=== PATIENT | male | born 1975 | race Caucasian/White ===

== ENCOUNTER 2017-06-17 22:13 | Emergency (ER) | payer MEDICAID ==
[~2017-06-17] VITALS: Ht 193 cm; Wt 76.2 kg
[~2017-06-17 22:13] MED LIST: CYCL-394 PO; HYDR1TAB PO; IBUP-1574 PO; MOT200T PO; motrin; no home
[2017-06-17 22:34] VITALS: BP 113/80
[2017-06-17] MEDS ORDERED: iohexol 300mg/ml 100ml inj. ONE (23:29)
[2017-06-18 00:05] LABS: BASOPHILS % (AUTO) 0.4 % (0-1); EOSINOPHILS # (AUTO) 0.3 X10'3 (0-0.9); EOSINOPHILS % (AUTO) 2.6 % (0-6); HEMATOCRIT 42.7 % (42.0-52.0); HEMOGLOBIN 14.5 g/dl (14.0-17.9); LYMPHOCYTES % (AUTO) 17.5 % (21-51); MEAN CORPUSCULAR HEMOGLOBIN 30.3 PG (27.0-31.0); MEAN CORPUSCULAR VOLUME 88.9 FL (78-98); MONOCYTES # (AUTO) 1.2 X10'3 (0-0.9); MONOCYTES % (AUTO) 10.8 % (2-12); NEUTROPHILS # (AUTO) 7.7 X10'3 (1.8-7.7); NEUTROPHILS % (AUTO) 68.7 % (42-75); PLATELET COUNT 262 X10'3 (140-440); RED BLOOD COUNT 4.81 X10'6 (4.70-6.10); RED CELL DISTRIBUTION WIDTH 15.7 % (11.5-14.5); WHITE BLOOD COUNT 11.3 X10'3 (4.5-11.0)
[2017-06-18 00:18] LABS: PARTIAL THROMBOPLASTIN TIME 29 SECONDS (22-32); PROTHROMBIN TIME 10.5 SECONDS (9.0-12.0)
[2017-06-18 00:20] LABS: ALANINE AMINOTRANSFERASE 20 U/L (12-78); ALBUMIN 3.3 G/DL (3.4-5.0); ALBUMIN/GLOBULIN RATIO 0.9 (1.1-1.5); ALKALINE PHOSPHATASE 110 IU/L (46-116); ANION GAP 9 (8-16); ASPARTATE AMINO TRANSFERASE 14 U/L (10-37); BILIRUBIN,TOTAL 1.6 MG/DL (0.1-1.0); BLOOD UREA NITROGEN 13 MG/DL (7-18); BUN/CREATININE RATIO 12.6 (5.4-32.0); CALCIUM 8.8 MG/DL (8.5-10.1); CHLORIDE 101 MMOL/L (99-107); CREATININE 1.03 MG/DL (0.60-1.10); GLUCOSE 114 MG/DL (70-104); POTASSIUM 3.3 MMOL/L (3.5-5.1); SODIUM 138 MMOL/L (135-145); TOTAL CARBON DIOXIDE 28.5 MMOL/L (24-32); TOTAL PROTEIN 6.9 G/DL (6.4-8.2); eGFR 79 ML/MIN
[2017-06-18] MEDS ORDERED: SULF1TAB49 PO (01:18)
[2017-06-18] MEDS ORDERED: CEPH500C5 PO (01:18)
[2017-06-18] MEDS ORDERED: ibuprofen tablet 400 MG TABLET PO ONE (01:20)
== END 2017-06-18 01:33 | disposition home or self-care (01) ==
LOC: ER 22:13
DX: L03.114 Cellulitis of left upper limb (principal); F12.10 Cannabis abuse, uncomplicated; J45.909 Unspecified asthma, uncomplicated; Z90.49 Acquired absence of other specified parts of digestive tract; Z79.899 Other long term (current) drug therapy
CPT/HCPCS: 36415; 73201; 80053; 83605; 84145; 85025; 85610; 85651; 85730; 87040; 99285; Q9967

== ENCOUNTER 2017-06-21 16:05 | Inpatient (IN) | payer MEDICAID ==
[~2017-06-21] VITALS: Ht 193 cm; Wt 100.0 kg
[~2017-06-21 16:05] MED LIST changes: +CEPH500C5 PO; +SULF1TAB49 PO
[2017-06-21] MEDS ORDERED: morphine 4 MG/ML inj SYRINge IV ONE (18:50)
[2017-06-21] MEDS ORDERED: LORazepam 2 mg/ml vial IV ONE (18:50)
[2017-06-21] MEDS ORDERED: normal saline 1000ML IV soln IVB ONE (18:50)
[2017-06-21] MEDS ORDERED: piperacillin/tazo 3.375gm/50ml 50 ML IV ONE (18:50)
[2017-06-21] MEDS ORDERED: iohexol 300mg/ml 100ml inj. ONE (19:14)
[2017-06-21 19:32] LABS: BASOPHILS # (AUTO) 0.1 X10'3 (0-0.2); BASOPHILS % (AUTO) 0.5 % (0-1); EOSINOPHILS # (AUTO) 0.2 X10'3 (0-0.9); EOSINOPHILS % (AUTO) 1.2 % (0-6); HEMATOCRIT 41.8 % (42.0-52.0); HEMOGLOBIN 13.9 g/dl (14.0-17.9); LYMPHOCYTES # (AUTO) 1.7 X10'3 (1.1-4.8); LYMPHOCYTES % (AUTO) 11.4 % (21-51); MEAN CORPUSCULAR HEMOGLOBIN 29.8 PG (27.0-31.0); MEAN CORPUSCULAR HGB CONC 33.3 % (33.0-36.5); MEAN CORPUSCULAR VOLUME 89.5 FL (78-98); MEAN PLATELET VOLUME 7.4 FL (7.4-10.4); MONOCYTES # (AUTO) 1.3 X10'3 (0-0.9); MONOCYTES % (AUTO) 8.4 % (2-12); NEUTROPHILS # (AUTO) 11.7 X10'3 (1.8-7.7); NEUTROPHILS % (AUTO) 78.5 % (42-75); PLATELET COUNT 333 X10'3 (140-440); RED BLOOD COUNT 4.67 X10'6 (4.70-6.10); RED CELL DISTRIBUTION WIDTH 15.8 % (11.5-14.5); WHITE BLOOD COUNT 14.9 X10'3 (4.5-11.0)
[2017-06-21 19:41] LABS: PARTIAL THROMBOPLASTIN TIME 32 SECONDS (22-32); PROTHROMBIN TIME 10.7 SECONDS (9.0-12.0)
[2017-06-21 19:46] LABS: ALANINE AMINOTRANSFERASE 28 U/L (12-78); ALBUMIN 2.9 G/DL (3.4-5.0); ALBUMIN/GLOBULIN RATIO 0.7 (1.1-1.5); ALKALINE PHOSPHATASE 95 IU/L (46-116); ANION GAP 7 (8-16); ASPARTATE AMINO TRANSFERASE 19 U/L (10-37); BLOOD UREA NITROGEN 13 MG/DL (7-18); BUN/CREATININE RATIO 14.6 (5.4-32.0); CALCIUM 8.8 MG/DL (8.5-10.1); CHLORIDE 99 MMOL/L (99-107); CREATININE 0.89 MG/DL (0.60-1.10); GLUCOSE 135 MG/DL (70-104); POTASSIUM 3.8 MMOL/L (3.5-5.1); SODIUM 133 MMOL/L (135-145); eGFR > 90 ML/MIN
[2017-06-21] MEDS ORDERED: ACET-2119 PO (20:17)
[2017-06-21] MEDS ORDERED: temazepam 15mg capsule PO PRN (21:00)
[2017-06-21] MEDS ORDERED: magnesium hydroxide 30ml (MOM) UD suspension PO PRN (22:10)
[2017-06-21] MEDS ORDERED: mag hydrox/Alum hydrox/simeth 30ml oral suspension PO PRN (22:10)
[2017-06-21] MEDS ORDERED: morphine 4 MG/ML inj SYRINge IV PRN (22:10)
[2017-06-21] MEDS ORDERED: acetaminophen 325mg tablet PO PRN (22:10)
[2017-06-21] MEDS ORDERED: ondansetron/PF 4mg/2ml inj IV PRN (22:10)
[2017-06-21] MEDS ORDERED: normal saline 1000ml 1,000 ML IV ONE (22:15)
[2017-06-21] MEDS: normal saline 1000ml 1,000 ML IV SCH (22:52)
[2017-06-22 00:17] LABS: URINE AMPHETAMINE SCREEN POSITIVE (Neg); URINE BARBITUATE SCREEN NEGATIVE (Neg); URINE BENZODIAZEPINES SCREEN NEGATIVE (Neg); URINE CANNABINOID SCREEN NEGATIVE (Neg); URINE COCAINE SCREEN NEGATIVE (Neg); URINE METHADONE SCREEN NEGATIVE (Neg); URINE OPIATE SCREEN POSITIVE (Neg); URINE PHENCYCLIDINE SCREEN NEGATIVE (Neg)
[2017-06-22] MEDS: piperacillin/tazo 3.375gm/50ml 50 ML IV SCH ×4 (02:19→20:04)
[2017-06-22 06:33] LABS: HEMATOCRIT 42.2 % (42.0-52.0); HEMOGLOBIN 14.2 g/dl (14.0-17.9); MEAN CORPUSCULAR HEMOGLOBIN 29.9 PG (27.0-31.0); MEAN CORPUSCULAR HGB CONC 33.6 % (33.0-36.5); MEAN CORPUSCULAR VOLUME 88.9 FL (78-98); MEAN PLATELET VOLUME 7.5 FL (7.4-10.4); PLATELET COUNT 291 X10'3 (140-440); RED BLOOD COUNT 4.74 X10'6 (4.70-6.10); RED CELL DISTRIBUTION WIDTH 16.1 % (11.5-14.5); WHITE BLOOD COUNT 16.9 X10'3 (4.5-11.0)
[2017-06-22 06:56] LABS: ALANINE AMINOTRANSFERASE 25 U/L (12-78); ALBUMIN 2.7 G/DL (3.4-5.0); ALBUMIN/GLOBULIN RATIO 0.6 (1.1-1.5); ALKALINE PHOSPHATASE 95 IU/L (46-116); ANION GAP 9 (8-16); ASPARTATE AMINO TRANSFERASE 20 U/L (10-37); BILIRUBIN,TOTAL 1.1 MG/DL (0.1-1.0); BLOOD UREA NITROGEN 8 MG/DL (7-18); BUN/CREATININE RATIO 8.7 (5.4-32.0); CALCIUM 8.8 MG/DL (8.5-10.1); CHLORIDE 101 MMOL/L (99-107); CREATININE 0.92 MG/DL (0.60-1.10); GLUCOSE 97 MG/DL (70-104); POTASSIUM 4.3 MMOL/L (3.5-5.1); SODIUM 136 MMOL/L (135-145); TOTAL CARBON DIOXIDE 26.3 MMOL/L (24-32); TOTAL PROTEIN 6.9 G/DL (6.4-8.2); eGFR 90 ML/MIN
[2017-06-22 07:11] LABS: ANISOCYTOSIS 1+; PLATELET ESTIMATE NORMAL; TOTAL CELLS COUNTED 100
[2017-06-22] MEDS: normal saline 1000ml 1,000 ML IV SCH ×2 (09:09→20:05)
[2017-06-22] MEDS: enoxaparin 40mg/0.4ml syringe SUBCUT SCH (09:43)
[2017-06-22] MEDS: morphine 4 MG/ML inj SYRINge IV PRN ×2 (09:44→21:43)
[2017-06-22 11:15] VITALS: BP 122/82
[2017-06-22] MEDS: HYDROcodone/acetaminophen 5mg/325mg tablet PO PRN ×2 (13:29→19:21)
[2017-06-22 14:31] VITALS: BP 137/89
[2017-06-22 20:00] VITALS: BP 122/66
[2017-06-22] MEDS: lactobacillus rhamnosus 10,000 MMU CELLS/CAPSULE PO SCH (20:05)
[2017-06-23] VITALS: BP 121/77
[2017-06-23] MEDS: HYDROcodone/acetaminophen 5mg/325mg tablet PO PRN ×5 (01:32→23:44)
[2017-06-23] MEDS: piperacillin/tazo 3.375gm/50ml 50 ML IV SCH ×4 (02:08→19:32)
[2017-06-23] MEDS: normal saline 1000ml 1,000 ML IV SCH ×3 (04:06→19:39)
[2017-06-23] MEDS: morphine 4 MG/ML inj SYRINge IV PRN ×4 (04:42→21:47)
[2017-06-23] MEDS ORDERED: VANCOMYCIN LEVEL IV ONE (07:30)
[2017-06-23 08:00] VITALS: BP 102/66
[2017-06-23 08:11] LABS: BASOPHILS # (AUTO) 0.1 X10'3 (0-0.2); BASOPHILS % (AUTO) 0.6 % (0-1); EOSINOPHILS # (AUTO) 0.5 X10'3 (0-0.9); EOSINOPHILS % (AUTO) 4.5 % (0-6); HEMATOCRIT 41.9 % (42.0-52.0); HEMOGLOBIN 13.9 g/dl (14.0-17.9); LYMPHOCYTES # (AUTO) 1.7 X10'3 (1.1-4.8); LYMPHOCYTES % (AUTO) 16.2 % (21-51); MEAN CORPUSCULAR HEMOGLOBIN 29.8 PG (27.0-31.0); MEAN CORPUSCULAR HGB CONC 33.2 % (33.0-36.5); MEAN CORPUSCULAR VOLUME 89.6 FL (78-98); MEAN PLATELET VOLUME 7.2 FL (7.4-10.4); MONOCYTES # (AUTO) 1.2 X10'3 (0-0.9); MONOCYTES % (AUTO) 10.8 % (2-12); NEUTROPHILS # (AUTO) 7.3 X10'3 (1.8-7.7); NEUTROPHILS % (AUTO) 67.9 % (42-75); PLATELET COUNT 337 X10'3 (140-440); RED BLOOD COUNT 4.67 X10'6 (4.70-6.10); RED CELL DISTRIBUTION WIDTH 16.1 % (11.5-14.5); WHITE BLOOD COUNT 10.8 X10'3 (4.5-11.0)
[2017-06-23] MEDS: lactobacillus rhamnosus 10,000 MMU CELLS/CAPSULE PO SCH ×2 (08:30→19:31)
[2017-06-23] MEDS: enoxaparin 40mg/0.4ml syringe SUBCUT SCH (08:31)
[2017-06-23 08:41] LABS: ALBUMIN 2.4 G/DL (3.4-5.0); ANION GAP 7 (8-16); BILIRUBIN,TOTAL 0.6 MG/DL (0.1-1.0); BLOOD UREA NITROGEN 10 MG/DL (7-18); BUN/CREATININE RATIO 11.1 (5.4-32.0); CALCIUM 8.7 MG/DL (8.5-10.1); CHLORIDE 103 MMOL/L (99-107); GLUCOSE 100 MG/DL (70-104); POTASSIUM 4.3 MMOL/L (3.5-5.1); SODIUM 138 MMOL/L (135-145); TOTAL CARBON DIOXIDE 27.7 MMOL/L (24-32); TOTAL PROTEIN 6.6 G/DL (6.4-8.2); eGFR > 90 ML/MIN
[2017-06-23 08:42] LABS: ALANINE AMINOTRANSFERASE 54 U/L (12-78); ALBUMIN/GLOBULIN RATIO 0.6 (1.1-1.5); ALKALINE PHOSPHATASE 89 IU/L (46-116); ASPARTATE AMINO TRANSFERASE 33 U/L (10-37); VANCOMYCIN,TROUGH 8.6 UG/ML (6.0-14.0)
[2017-06-23] MEDS ORDERED: Permethrin 1% 59ml topical rinse TP ONE (11:10)
[2017-06-23 16:02] LABS: URINE AMPHETAMINE SCREEN NEGATIVE (Neg); URINE BARBITUATE SCREEN NEGATIVE (Neg); URINE BENZODIAZEPINES SCREEN NEGATIVE (Neg); URINE CANNABINOID SCREEN NEGATIVE (Neg); URINE COCAINE SCREEN NEGATIVE (Neg); URINE METHADONE SCREEN NEGATIVE (Neg); URINE OPIATE SCREEN POSITIVE (Neg); URINE PHENCYCLIDINE SCREEN NEGATIVE (Neg)
[2017-06-23 20:00] VITALS: BP 125/70
[2017-06-23] MEDS ORDERED: VANCOMYCIN LEVEL IV NR (23:30)
[2017-06-24] VITALS: BP 143/74
[2017-06-24] MEDS: piperacillin/tazo 3.375gm/50ml 50 ML IV SCH ×4 (03:32→19:49)
[2017-06-24] MEDS: morphine 4 MG/ML inj SYRINge IV PRN ×3 (03:33→14:49)
[2017-06-24 04:53] LABS: BASOPHILS % (AUTO) 0.3 % (0-1); EOSINOPHILS # (AUTO) 0.7 X10'3 (0-0.9); EOSINOPHILS % (AUTO) 7.7 % (0-6); HEMATOCRIT 42.3 % (42.0-52.0); LYMPHOCYTES # (AUTO) 1.9 X10'3 (1.1-4.8); LYMPHOCYTES % (AUTO) 20.2 % (21-51); MEAN CORPUSCULAR HEMOGLOBIN 29.8 PG (27.0-31.0); MEAN CORPUSCULAR HGB CONC 33.1 % (33.0-36.5); MEAN PLATELET VOLUME 7.7 FL (7.4-10.4); MONOCYTES % (AUTO) 10.6 % (2-12); NEUTROPHILS # (AUTO) 5.9 X10'3 (1.8-7.7); NEUTROPHILS % (AUTO) 61.2 % (42-75); PLATELET COUNT 358 X10'3 (140-440); RED CELL DISTRIBUTION WIDTH 15.6 % (11.5-14.5); WHITE BLOOD COUNT 9.6 X10'3 (4.5-11.0)
[2017-06-24 05:45] LABS: ALANINE AMINOTRANSFERASE 58 U/L (12-78); ALBUMIN 2.4 G/DL (3.4-5.0); ALBUMIN/GLOBULIN RATIO 0.5 (1.1-1.5); ALKALINE PHOSPHATASE 92 IU/L (46-116); ANION GAP 10 (8-16); ASPARTATE AMINO TRANSFERASE 27 U/L (10-37); BILIRUBIN,TOTAL 0.4 MG/DL (0.1-1.0); BLOOD UREA NITROGEN 12 MG/DL (7-18); BUN/CREATININE RATIO 14.3 (5.4-32.0); CALCIUM 9.3 MG/DL (8.5-10.1); CHLORIDE 102 MMOL/L (99-107); CREATININE 0.84 MG/DL (0.60-1.10); GLUCOSE 126 MG/DL (70-104); POTASSIUM 4.1 MMOL/L (3.5-5.1); SODIUM 138 MMOL/L (135-145); TOTAL CARBON DIOXIDE 26.3 MMOL/L (24-32); TOTAL PROTEIN 6.8 G/DL (6.4-8.2); eGFR > 90 ML/MIN
[2017-06-24 07:00] VITALS: BP 94/65
[2017-06-24] MEDS: lactobacillus rhamnosus 10,000 MMU CELLS/CAPSULE PO SCH ×2 (07:56→19:49)
[2017-06-24] MEDS: enoxaparin 40mg/0.4ml syringe SUBCUT SCH (07:57)
[2017-06-24] MEDS ORDERED: Permethrin 1% 59ml topical rinse TP ONE (10:00)
[2017-06-24 11:00] VITALS: BP 95/53
[2017-06-24] MEDS: HYDROcodone/acetaminophen 5mg/325mg tablet PO PRN ×2 (11:59→20:04)
[2017-06-24] MEDS ORDERED: vancomycin inj 1,250 MG in normal saline 250ml IV soln 250 ML IV SCH (16:00)
[2017-06-24] MEDS: vancomycin/NS 1 GM ADD-VANTAGE 250 ML IV SCH ×2 (16:18→21:28)
[2017-06-24 16:25] VITALS: BP 120/63
[2017-06-24] MEDS: normal saline 1000ml 1,000 ML IV SCH ×2 (16:28→19:38)
[2017-06-24 20:26] VITALS: BP 107/59
[2017-06-25] VITALS: BP 116/68
[2017-06-25] MEDS: piperacillin/tazo 3.375gm/50ml 50 ML IV SCH ×4 (01:12→20:20)
[2017-06-25] MEDS: HYDROcodone/acetaminophen 5mg/325mg tablet PO PRN ×4 (01:12→20:21)
[2017-06-25] MEDS: vancomycin/NS 1 GM ADD-VANTAGE 250 ML IV SCH ×4 (03:02→21:51)
[2017-06-25] MEDS: morphine 4 MG/ML inj SYRINge IV PRN (05:25)
[2017-06-25] MEDS: normal saline 1000ml 1,000 ML IV SCH ×2 (05:26→17:23)
[2017-06-25] MEDS ORDERED: VANCOMYCIN LEVEL IV ONE (07:30)
[2017-06-25 08:00] VITALS: BP 119/67
[2017-06-25] MEDS ORDERED: iohexol 300mg/ml 100ml inj. ONE (08:28)
[2017-06-25] MEDS: lactobacillus rhamnosus 10,000 MMU CELLS/CAPSULE PO SCH ×2 (09:23→20:20)
[2017-06-25] MEDS: enoxaparin 40mg/0.4ml syringe SUBCUT SCH (09:24)
[2017-06-25 09:50] LABS: BASOPHILS # (AUTO) 0.1 X10'3 (0-0.2); BASOPHILS % (AUTO) 1.5 % (0-1); EOSINOPHILS # (AUTO) 0.8 X10'3 (0-0.9); EOSINOPHILS % (AUTO) 8.4 % (0-6); HEMATOCRIT 44.1 % (42.0-52.0); HEMOGLOBIN 14.5 g/dl (14.0-17.9); LYMPHOCYTES # (AUTO) 1.9 X10'3 (1.1-4.8); LYMPHOCYTES % (AUTO) 20.8 % (21-51); MEAN CORPUSCULAR HEMOGLOBIN 29.5 PG (27.0-31.0); MEAN CORPUSCULAR HGB CONC 32.8 % (33.0-36.5); MEAN CORPUSCULAR VOLUME 89.9 FL (78-98); MEAN PLATELET VOLUME 7.4 FL (7.4-10.4); MONOCYTES # (AUTO) 1.1 X10'3 (0-0.9); MONOCYTES % (AUTO) 11.8 % (2-12); NEUTROPHILS # (AUTO) 5.1 X10'3 (1.8-7.7); NEUTROPHILS % (AUTO) 57.5 % (42-75); PLATELET COUNT 412 X10'3 (140-440); RED BLOOD COUNT 4.91 X10'6 (4.70-6.10); RED CELL DISTRIBUTION WIDTH 15.6 % (11.5-14.5); WHITE BLOOD COUNT 8.9 X10'3 (4.5-11.0)
[2017-06-25 10:03] LABS: ALANINE AMINOTRANSFERASE 76 U/L (12-78); ALBUMIN 2.6 G/DL (3.4-5.0); ALBUMIN/GLOBULIN RATIO 0.6 (1.1-1.5); ALKALINE PHOSPHATASE 100 IU/L (46-116); ANION GAP 6 (8-16); ASPARTATE AMINO TRANSFERASE 33 U/L (10-37); BILIRUBIN,TOTAL 0.5 MG/DL (0.1-1.0); BLOOD UREA NITROGEN 13 MG/DL (7-18); BUN/CREATININE RATIO 15.1 (5.4-32.0); CALCIUM 8.8 MG/DL (8.5-10.1); CHLORIDE 103 MMOL/L (99-107); CREATININE 0.86 MG/DL (0.60-1.10); GLUCOSE 90 MG/DL (70-104); POTASSIUM 4.4 MMOL/L (3.5-5.1); SODIUM 137 MMOL/L (135-145); TOTAL CARBON DIOXIDE 27.6 MMOL/L (24-32); TOTAL PROTEIN 7.2 G/DL (6.4-8.2); VANCOMYCIN,TROUGH 18.3 UG/ML (6.0-14.0); eGFR > 90 ML/MIN
[2017-06-25 12:00] VITALS: BP 117/63
[2017-06-25] MEDS: Ivermectin 3mg tablet PO ONE ×2 (13:25→20:20)
[2017-06-25 20:00] VITALS: BP 95/52
[2017-06-26] VITALS: BP 105/54
[2017-06-26] MEDS: piperacillin/tazo 3.375gm/50ml 50 ML IV SCH ×2 (01:41→07:07)
[2017-06-26] MEDS: vancomycin/NS 1 GM ADD-VANTAGE 250 ML IV SCH ×2 (02:46→08:19)
[2017-06-26] MEDS: normal saline 1000ml 1,000 ML IV SCH (02:47)
[2017-06-26] MEDS: HYDROcodone/acetaminophen 5mg/325mg tablet PO PRN ×2 (02:47→08:24)
[2017-06-26 05:31] LABS: BASOPHILS # (AUTO) 0.1 X10'3 (0-0.2); BASOPHILS % (AUTO) 1.2 % (0-1); EOSINOPHILS # (AUTO) 0.8 X10'3 (0-0.9); EOSINOPHILS % (AUTO) 11.6 % (0-6); HEMATOCRIT 41.2 % (42.0-52.0); HEMOGLOBIN 13.7 g/dl (14.0-17.9); LYMPHOCYTES # (AUTO) 1.9 X10'3 (1.1-4.8); LYMPHOCYTES % (AUTO) 28.3 % (21-51); MEAN CORPUSCULAR HEMOGLOBIN 29.5 PG (27.0-31.0); MEAN CORPUSCULAR HGB CONC 33.3 % (33.0-36.5); MEAN CORPUSCULAR VOLUME 88.5 FL (78-98); MONOCYTES # (AUTO) 0.8 X10'3 (0-0.9); NEUTROPHILS # (AUTO) 3.2 X10'3 (1.8-7.7); NEUTROPHILS % (AUTO) 46.9 % (42-75); PLATELET COUNT 398 X10'3 (140-440); RED BLOOD COUNT 4.66 X10'6 (4.70-6.10); WHITE BLOOD COUNT 6.8 X10'3 (4.5-11.0)
[2017-06-26 05:50] LABS: ALANINE AMINOTRANSFERASE 73 U/L (12-78); ALBUMIN 2.4 G/DL (3.4-5.0); ALBUMIN/GLOBULIN RATIO 0.6 (1.1-1.5); ALKALINE PHOSPHATASE 86 IU/L (46-116); ANION GAP 5 (8-16); ASPARTATE AMINO TRANSFERASE 31 U/L (10-37); BILIRUBIN,TOTAL 0.2 MG/DL (0.1-1.0); BLOOD UREA NITROGEN 17 MG/DL (7-18); BUN/CREATININE RATIO 19.8 (5.4-32.0); CHLORIDE 105 MMOL/L (99-107); CREATININE 0.86 MG/DL (0.60-1.10); GLUCOSE 111 MG/DL (70-104); POTASSIUM 4.3 MMOL/L (3.5-5.1); SODIUM 139 MMOL/L (135-145); TOTAL CARBON DIOXIDE 29.2 MMOL/L (24-32); TOTAL PROTEIN 6.6 G/DL (6.4-8.2); eGFR > 90 ML/MIN
[2017-06-26 07:00] VITALS: BP 109/66
[2017-06-26] MEDS: lactobacillus rhamnosus 10,000 MMU CELLS/CAPSULE PO SCH (08:24)
[2017-06-26] MEDS: enoxaparin 40mg/0.4ml syringe SUBCUT SCH (08:25)
== END 2017-06-26 11:37 | disposition left against medical advice (07) | DRG 383 ==
LOC: ER 16:06 → ED HOLD 22:06 → SUR 3N 06-22 16:14
PROVIDERS: ADMIT Internal Medicine; ATTEND Emergency Medicine
PROC: BP2U1ZZ Computerized Tomography (CT Scan) of Left Upper Extremity using Low Osmolar Contrast (ICD-10-PCS; principal; 2017-06-21)
PROC: BP2F1ZZ Computerized Tomography (CT Scan) of Left Upper Arm using Low Osmolar Contrast (ICD-10-PCS; 2017-06-25)
DX: L03.114 Cellulitis of left upper limb (principal); F41.9 Anxiety disorder, unspecified; F17.210 Nicotine dependence, cigarettes, uncomplicated; F12.90 Cannabis use, unspecified, uncomplicated; K57.90 Diverticulosis of intestine, part unspecified, without perforation or abscess without bleeding; J45.909 Unspecified asthma, uncomplicated; F19.10 Other psychoactive substance abuse, uncomplicated; Z53.21 Procedure and treatment not carried out due to patient leaving prior to being seen by health care provider; R40.0 Somnolence; Z90.49 Acquired absence of other specified parts of digestive tract; Z79.899 Other long term (current) drug therapy; Z71.6 Tobacco abuse counseling; Z76.5 Malingerer [conscious simulation]
CPT/HCPCS: 36415; 73201; 80053; 80202; 80305; 83605; 85025; 85610; 85730; 87040; 87070; 93306; 96365; 96375; 99285; J1650; J2060; J2270; J2543; J3370; J7030; Q9967

== ENCOUNTER 2018-05-09 08:20 | Emergency (ER) | payer MEDICAID ==
[~2018-05-09] VITALS: Ht 193 cm; Wt 109.0 kg
[~2018-05-09 08:20] MED LIST changes: +ACET-2119 PO; -CYCL-394 PO; -HYDR1TAB PO; -IBUP-1574 PO; -MOT200T PO; -SULF1TAB49 PO
[2018-05-09] MEDS ORDERED: SULF1TAB49 PO (11:35)
[2018-05-09 11:54] VITALS: BP 110/68
== END 2018-05-09 12:13 | disposition home or self-care (01) ==
LOC: ER 08:22
DX: B34.9 Viral infection, unspecified (principal); L73.9 Follicular disorder, unspecified; J45.909 Unspecified asthma, uncomplicated; F17.210 Nicotine dependence, cigarettes, uncomplicated; F12.90 Cannabis use, unspecified, uncomplicated; F15.90 Other stimulant use, unspecified, uncomplicated; Z90.49 Acquired absence of other specified parts of digestive tract; Z86.14 Personal history of Methicillin resistant Staphylococcus aureus infection; Z79.899 Other long term (current) drug therapy
CPT/HCPCS: 99283

== ENCOUNTER 2018-09-03 08:16 | Emergency (ER) | payer MEDICAID ==
[~2018-09-03] VITALS: Ht 193 cm; Wt 100.0 kg
[~2018-09-03 08:16] MED LIST changes: -CEPH500C5 PO
[2018-09-03 08:20] VITALS: BP 102/65
[2018-09-03] MEDS ORDERED: orphenadrine citrate 60mg/2ml inj. IM ONE (08:55)
[2018-09-03] MEDS ORDERED: HYDROcodone/acetaminophen 10/325mg tab PO ONE (08:55)
[2018-09-03] MEDS ORDERED: ketorolac trometh inj. 60 MG/2 ML VIAL IM ONE (08:55)
[2018-09-03] MEDS ORDERED: HYDR-4353 PO (09:46)
[2018-09-03] MEDS ORDERED: ORPH100T2 PO (09:46)
== END 2018-09-03 10:03 | disposition home or self-care (01) ==
LOC: ER 08:17
DX: S29.011A Strain of muscle and tendon of front wall of thorax, initial encounter (principal); S16.1XXA Strain of muscle, fascia and tendon at neck level, initial encounter; S09.90XA Unspecified injury of head, initial encounter; J45.909 Unspecified asthma, uncomplicated; F41.9 Anxiety disorder, unspecified; F12.90 Cannabis use, unspecified, uncomplicated; F17.200 Nicotine dependence, unspecified, uncomplicated; Z90.49 Acquired absence of other specified parts of digestive tract; Z79.899 Other long term (current) drug therapy; V29.9XXA Motorcycle rider (driver) (passenger) injured in unspecified traffic accident, initial encounter; Y93.89 Activity, other specified; Y92.488 Other paved roadways as the place of occurrence of the external cause; Y99.8 Other external cause status
CPT/HCPCS: 72052; 96372; 99284; J1885; J2360

== ENCOUNTER 2018-09-05 08:27 | Emergency (ER) | payer MEDICAID ==
[~2018-09-05] VITALS: Ht 193 cm; Wt 100.0 kg
[~2018-09-05 08:27] MED LIST changes: +HYDR-4353 PO; +ORPH100T2 PO
[2018-09-05] MEDS ORDERED: SULF1TAB49 PO (09:06)
[2018-09-05] MEDS ORDERED: LIDOcaine 1% w/epiNEPHrine 1:200,000 30ml vial IM ONE (09:10)
[2018-09-05 10:02] VITALS: BP 13/68
== END 2018-09-05 10:05 | disposition home or self-care (01) ==
LOC: ER 08:28
DX: S81.032A Puncture wound without foreign body, left knee, initial encounter (principal); L02.416 Cutaneous abscess of left lower limb; J45.909 Unspecified asthma, uncomplicated; F41.9 Anxiety disorder, unspecified; F12.90 Cannabis use, unspecified, uncomplicated; Z90.49 Acquired absence of other specified parts of digestive tract; Z79.2 Long term (current) use of antibiotics; Z79.899 Other long term (current) drug therapy; X58.XXXA Exposure to other specified factors, initial encounter; Y93.9 Activity, unspecified; Y92.89 Other specified places as the place of occurrence of the external cause; Y99.8 Other external cause status
CPT/HCPCS: 10060; 99283

== ENCOUNTER 2018-09-15 00:51 | Emergency (ER) | payer MEDICAID ==
[~2018-09-15] VITALS: Ht 193 cm; Wt 113.6 kg
[2018-09-15 00:57] VITALS: BP 116/85
[2018-09-15] MEDS ORDERED: cyclobenzaprine 10mg tablet PO ONE (02:05)
[2018-09-15] MEDS ORDERED: HYDROcodone/acetaminophen 10/325mg tab PO ONE (02:05)
[2018-09-15] MEDS ORDERED: naproxen 500mg tablet PO ONE (02:05)
[2018-09-15] MEDS ORDERED: CYCL-1 PO (03:15)
[2018-09-15] MEDS ORDERED: HYDR-4383 PO (03:15)
[2018-09-15] MEDS ORDERED: NAPR-56 PO (03:15)
== END 2018-09-15 03:52 | disposition home or self-care (01) ==
LOC: ER 00:52
DX: M54.2 Cervicalgia (principal); R51 Headache; M79.18 Myalgia, other site; J45.909 Unspecified asthma, uncomplicated; F41.9 Anxiety disorder, unspecified; Z90.49 Acquired absence of other specified parts of digestive tract; F12.90 Cannabis use, unspecified, uncomplicated; Z79.899 Other long term (current) drug therapy; W18.39XA Other fall on same level, initial encounter; Y93.89 Activity, other specified; Y92.89 Other specified places as the place of occurrence of the external cause; Y99.8 Other external cause status
CPT/HCPCS: 70450; 72125; 99284

== ENCOUNTER 2018-11-16 18:46 | Emergency (ER) | payer MEDICAID ==
[~2018-11-16] VITALS: Ht 193 cm; Wt 122.4 kg
[~2018-11-16 18:46] MED LIST changes: +CYCL-1 PO; -HYDR-4353 PO; +HYDR-4383 PO
--- NOTE | 2018-11-16 19:07 | NUR ---
PT STATES, IM HAVING PAIN IN MY BACK, AND SHARP PAIN ON RIGHT SIDE OF HEAD.
[2018-11-16] MEDS ORDERED: orphenadrine citrate 60mg/2ml inj. IM ONE (20:00)
[2018-11-16] MEDS ORDERED: ketorolac tromethamine 15mg/ml inj. IM ONE (20:00)
[2018-11-16] MEDS ORDERED: METH-360 PO (20:52)
[2018-11-16] MEDS ORDERED: NAPR-56 PO (20:52)
[2018-11-16 20:57] VITALS: BP 123/60
== END 2018-11-16 20:55 | disposition home or self-care (01) ==
LOC: ER 18:47
DX: G44.209 Tension-type headache, unspecified, not intractable (principal); M54.5 Low back pain; M54.6 Pain in thoracic spine; J45.909 Unspecified asthma, uncomplicated; F41.9 Anxiety disorder, unspecified; F12.90 Cannabis use, unspecified, uncomplicated; Z90.49 Acquired absence of other specified parts of digestive tract; Z79.899 Other long term (current) drug therapy
CPT/HCPCS: 96372; 99283; J1885; J2360

== ENCOUNTER 2019-10-22 08:10 | Inpatient (IN) | payer MEDICAID ==
[~2019-10-22] VITALS: Ht 193 cm; Wt 140.9 kg
[~2019-10-22 08:10] MED LIST changes: +METH-360 PO
[2019-10-22] MEDS ORDERED: ketorolac tromethamine 15mg/ml inj. IV ONE (08:35)
[2019-10-22 09:11] LABS: BASOPHILS # (AUTO) 0.1 X10'3 (0-0.2); BASOPHILS % (AUTO) 0.5 % (0-1); EOSINOPHILS # (AUTO) 0.6 X10'3 (0-0.9); EOSINOPHILS % (AUTO) 5.5 % (0-6); HEMATOCRIT 47.7 % (42.0-52.0); HEMOGLOBIN 15.8 g/dl (14.0-17.9); LYMPHOCYTES # (AUTO) 1.7 X10'3 (1.1-4.8); LYMPHOCYTES % (AUTO) 16.5 % (21-51); MEAN CORPUSCULAR HEMOGLOBIN 29.9 PG (27.0-31.0); MEAN CORPUSCULAR HGB CONC 33.1 g/dL (33.0-36.5); MEAN CORPUSCULAR VOLUME 90.2 FL (78-98); MEAN PLATELET VOLUME 8.1 FL (7.4-10.4); MONOCYTES # (AUTO) 0.9 X10'3 (0-0.9); MONOCYTES % (AUTO) 8.4 % (2-12); NEUTROPHILS # (AUTO) 7.1 X10'3 (1.8-7.7); NEUTROPHILS % (AUTO) 69.1 % (42-75); PLATELET COUNT 224 X10'3 (140-440); RED BLOOD COUNT 5.29 X10'6 (4.70-6.10); RED CELL DISTRIBUTION WIDTH 14.6 % (11.5-14.5); WHITE BLOOD COUNT 10.3 X10'3 (4.5-11.0)
[2019-10-22 09:20] LABS: PARTIAL THROMBOPLASTIN TIME 32 SECONDS (22-32)
[2019-10-22 09:21] LABS: ALANINE AMINOTRANSFERASE 43 U/L (12-78); ALBUMIN 3.9 G/DL (3.4-5.0); ALKALINE PHOSPHATASE 140 IU/L (46-116); ANION GAP 7 (8-16); ASPARTATE AMINO TRANSFERASE 15 U/L (10-37); BILIRUBIN,TOTAL 0.7 MG/DL (0.1-1.0); BLOOD UREA NITROGEN 19 MG/DL (7-18); BUN/CREATININE RATIO 17.6 (5.4-32.0); CALCIUM 9.1 MG/DL (8.5-10.1); CHLORIDE 104 MMOL/L (99-107); CREATININE 1.08 MG/DL (0.60-1.10); GLUCOSE 109 MG/DL (70-104); POTASSIUM 4.2 MMOL/L (3.5-5.1); SODIUM 137 MMOL/L (135-145); TOTAL CARBON DIOXIDE 26.2 MMOL/L (24-32); TOTAL PROTEIN 7.8 G/DL (6.4-8.2); eGFR 74 ML/MIN
[2019-10-22] MEDS ORDERED: ondansetron/PF 4mg/2ml inj IV ONE (10:20)
[2019-10-22] MEDS ORDERED: HYDROcodone/acetaminophen 10/325mg tab PO ONE (10:20)
[2019-10-22] MEDS ORDERED: heparin 25,000 UNIT/250ml bag 250 ML IV SCH (11:12)
[2019-10-22] MEDS ORDERED: magnesium Cl slow-release 64mg tablet PO PRN (11:15)
[2019-10-22] MEDS ORDERED: acetaminophen 650mg rectal suppository RC PRN (11:15)
[2019-10-22] MEDS ORDERED: acetaminophen 325mg tablet PO PRN ×2 (11:15)
[2019-10-22] MEDS ORDERED: ondansetron/PF 4mg/2ml inj IV PRN (11:15)
[2019-10-22] MEDS ORDERED: bisacodyl 10mg suppository rectal RC PRN (11:15)
[2019-10-22] MEDS ORDERED: heparin 10,000 units/1 ML INJ IV PRN ×2 (11:15)
[2019-10-22] MEDS ORDERED: magnesium 4gm in 100ml NS 100 ML IV PRN (11:15)
[2019-10-22] MEDS ORDERED: potassium Cl 20 mEq SR tablet PO PRN ×2 (11:15)
[2019-10-22] MEDS ORDERED: morphine 2 MG/ML inj. syringe IV PRN ×2 (11:15)
[2019-10-22] MEDS ORDERED: metoclopramide 5 mg/ml inj IV PRN (11:15)
[2019-10-22] MEDS ORDERED: mag hydrox/Alum hydrox/simeth 30ml oral suspension PO PRN (11:15)
[2019-10-22] MEDS ORDERED: heparin 10,000 units/1 ML INJ IV ONE ×3 (11:15→11:20)
[2019-10-22] MEDS ORDERED: potassium CL 10mEq/100ml bag 100 ML IV PRN ×2 (11:15)
[2019-10-22] MEDS ORDERED: magnesium hydroxide 30ml (MOM) UD suspension PO PRN (11:15)
[2019-10-22] MEDS ORDERED: magnesium 2GM in 50ml NS 50 ML IV PRN (11:15)
[2019-10-22] MEDS ORDERED: HYDROcodone/acetaminophen 5mg/325mg tablet PO PRN (11:15)
[2019-10-22] MEDS ORDERED: HYDROcodone/acetaminophen 10/325mg tab PO PRN (11:15)
[2019-10-22] MEDS ORDERED: diphenhydrAMINE 25mg capsule PO PRN (11:15)
[2019-10-22] MEDS: heparin 25,000 UNIT/250ml bag 250 ML IV SCH ×2 (12:02→23:42)
[2019-10-22 12:03] LABS: HEMOGLOBIN A1C 5.4 % (4.5-6.2)
[2019-10-22] MEDS: normal saline 1000ml 1,000 ML IV SCH ×2 (12:04→21:22)
[2019-10-22] MEDS ORDERED: NO HOME MEDS (12:13)
--- NOTE | 2019-10-22 12:29 | NUR ---
Pt eatig food brought in by . Pt on Reg diet.
[2019-10-22 14:41] VITALS: BP 133/76
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
[2019-10-22 18:00] VITALS: BP 113/72
--- NOTE | 2019-10-22 18:09 | NUR ---
Problems reprioritized. Patient report given, questions answered & plan of care reviewed with LOULOU Cooper.
[2019-10-22] MEDS: ketorolac trometh. 30mg/ml inj. IV PRN (19:10)
--- NOTE | 2019-10-22 19:19 | NUR ---
Patient in room [facility] 355. I have received report from LOULOU Ellis and had the opportunity to ask questions and assume patient care.
--- NOTE | 2019-10-22 19:30 | NUR ---
Pt in room crying states she is upset because "no one is telling me anything" "I want to talk to Dr. Mclean" Let pt verbalize her feelings, explained plan of care tonight, go lightly preop and plan for colonoscopy in am. pt wants to know time, why she is having a colonoscopy and how she can take prep if she becomes nauseated. Gi lab was called no answer, [facility] does not have schedule for GI lab in am. Explained to pt that I will call GI lab when they arrive in am and try to get a time for her. Pt verbalizes understanding. Explained to pt that last Colonoscopy was in 2014 (per pt) and that Dr. Mclean recommended a Colonoscopy for Colitis per notes. Explained that 5 years was a long time ago and that is why one is recommended now d/t her abd pain and nausea. Explained to pt that it can be difficult to drink go-lightly prep, to go slowly and stop briefly when feeling nauseated and medication can be given if needed. Pt also informed that Dr. Mclean answering service was called by rn and message left for him that pt would like to see him or for him to call her. Pt more calm after expressing her feelings, states she is worried about insurance not covering MD and some tests. She states she has already spoken to insurance and spoke to business office re coverage. Pt states to call if anything needed tonight, she is more calm now. LOULOU Aguero also in room several times to speak with pt and answer questions. Addendum: 10/22/19 at 2050 by Surekha Kim RN Disregard note. Wrong patient.
[2019-10-22] MEDS: K and/or MAG REPLACEMENT MC SCH (20:00)
[2019-10-23] VITALS: BP 91/60
[2019-10-23] MEDS: heparin 25,000 UNIT/250ml bag 250 ML IV SCH (01:24)
[2019-10-23] MEDS: ketorolac trometh. 30mg/ml inj. IV PRN ×2 (01:30→10:49)
--- NOTE | 2019-10-23 06:34 | NUR ---
Problems reprioritized. Patient report given, questions answered & plan of care reviewed with LOULOU Cervantes.
[2019-10-23] MEDS: K and/or MAG REPLACEMENT MC SCH (07:17)
[2019-10-23 07:20] LABS: HEMOGLOBIN 14.4 g/dl (14.0-17.9)
[2019-10-23 07:21] LABS: HEMATOCRIT 43.7 % (42.0-52.0); MEAN CORPUSCULAR HEMOGLOBIN 29.8 PG (27.0-31.0); MEAN CORPUSCULAR VOLUME 90.3 FL (78-98); MEAN PLATELET VOLUME 8.3 FL (7.4-10.4); PLATELET COUNT 199 X10'3 (140-440); RED BLOOD COUNT 4.84 X10'6 (4.70-6.10); RED CELL DISTRIBUTION WIDTH 14.5 % (11.5-14.5); WHITE BLOOD COUNT 6.3 X10'3 (4.5-11.0)
[2019-10-23 07:30] VITALS: BP 109/71
[2019-10-23 07:38] LABS: ALANINE AMINOTRANSFERASE 38 U/L (12-78); ALBUMIN 3.1 G/DL (3.4-5.0); ALBUMIN/GLOBULIN RATIO 0.9 (1.1-1.5); ALKALINE PHOSPHATASE 120 IU/L (46-116); ANION GAP 6 (8-16); ASPARTATE AMINO TRANSFERASE 12 U/L (10-37); BILIRUBIN,TOTAL 0.6 MG/DL (0.1-1.0); BLOOD UREA NITROGEN 22 MG/DL (7-18); BUN/CREATININE RATIO 19.6 (5.4-32.0); CALCIUM 8.5 MG/DL (8.5-10.1); CHLORIDE 105 MMOL/L (99-107); CHOL/HDL RATIO 11.1 (0.00-4.99); CHOLESTEROL 155 MG/DL (0-200); CREATININE 1.12 MG/DL (0.60-1.10); GLUCOSE 100 MG/DL (70-104); HDL CHOLESTEROL 14 MG/DL (35-60); LDL CHOLESTEROL 110 MG/DL (50-100); MAGNESIUM 1.8 MG/DL (1.5-2.4); PHOSPHORUS 3.3 MG/DL (2.3-4.5); POTASSIUM 4.3 MMOL/L (3.5-5.1); SODIUM 138 MMOL/L (135-145); TOTAL CARBON DIOXIDE 26.8 MMOL/L (24-32); TOTAL PROTEIN 6.4 G/DL (6.4-8.2); TRIGLYCERIDES 207 MG/DL (20-135); eGFR 71 ML/MIN
[2019-10-23 07:41] LABS: TOTAL CELLS COUNTED 100
[2019-10-23 07:42] LABS: PLATELET ESTIMATE NORMAL
[2019-10-23 07:44] LABS: BASOPHILS # (AUTO) 0.1 X10'3 (0-0.2); BASOPHILS % (AUTO) 0.9 % (0-1); EOSINOPHILS # (AUTO) 0.7 X10'3 (0-0.9); EOSINOPHILS % (AUTO) 10.6 % (0-6); LYMPHOCYTES # (AUTO) 2.3 X10'3 (1.1-4.8); LYMPHOCYTES % (AUTO) 35.9 % (21-51); MONOCYTES # (AUTO) 0.7 X10'3 (0-0.9); MONOCYTES % (AUTO) 11.7 % (2-12); NEUTROPHILS # (AUTO) 2.6 X10'3 (1.8-7.7); NEUTROPHILS % (AUTO) 40.9 % (42-75)
[2019-10-23] MEDS: normal saline 1000ml 1,000 ML IV SCH (08:44)
[2019-10-23 12:00] VITALS: BP 95/65
[2019-10-23 12:01] LABS: CLARITY,URINE CLEAR (Clear); COLOR,URINE STRAW (Yellow); GLUCOSE, URINE NEGATIVE (Neg); KETONES,URINE NEGATIVE (Neg); LEUKOCYTE ESTERASE ,URINE NEGATIVE (Neg); NITRITES, URINE NEGATIVE (Neg); OCCULT BLOOD,URINE TRACE-INTACT (Neg); PROTEIN,URINE NEGATIVE (Neg); UROBILINOGEN,URINE 0.2 E.U/dL (0.2-1.0)
[2019-10-23 12:06] LABS: UA COLLECTION TYPE NON-SPECIFIED
[2019-10-23 12:08] LABS: BACTERIA,URINE NONE SEEN /HPF (Neg); MUCUS STRANDS NONE SEEN /LPF (Neg); RBC,URINE NONE SEEN /HPF (0-2); SQUAMOUS EPITHELIAL CELL,UR FEW /LPF (FEW); WBC,URINE 0-4 /HPF (0-4)
--- NOTE | 2019-10-23 12:49 | NUR ---
PAGER ID: [phone] MESSAGE: Kizzy MillerB : patient says that he is discharging today, didn't get to round with you but if so, he has to be picked up soon he says. thanks, elias [phone]
[2019-10-23] MEDS ORDERED: ATOR20TA66 PO (12:59)
[2019-10-23] MEDS ORDERED: APIX5TAB3 PO (12:59)
--- NOTE | 2019-10-23 13:58 | NUR ---
PATIENT STABLE AND APPROPRIATE FOR DISCHARGE HOME WITH . IV REMOVED, ALL BELONGINGS TAKEN FROM ROOM. NEW PRESCRIPTION FOR ELIQUIS AND ATORVASTATIN HAS BEEN TRANSMITTED TO [facility]. I MADE A TELEPHONE CALL TO THE PHARMACIST TO CONFIRM THAT THE ELIQUIS IS COVERED BY HIS INSURANCE. PATIENT ALSO WAS SENT WITH A 30-DAY FREE TRIAL FOR THE ELIQUIS. DISCHARGE INSTRUCTIONS AND EDUCATION GIVEN AND REVIEWED WITH PATIENT, HE IS AWARE OF HIS NEXT DUE DOSES ON HIS MEDICATIONS, SMOKING CESSATION AND DIET INFORMATION ALSO DISCUSSED WITH PATIENT, ALL QUESTIONS ANSWERED.
== END 2019-10-23 13:48 | disposition home or self-care (01) | DRG 197 ==
LOC: ER 08:11 → ED HOLD 11:12 → SUR 3N 14:30
PROVIDERS: ADMIT Family Medicine; ATTEND Family Medicine
DX: I82.412 Acute embolism and thrombosis of left femoral vein (principal); E66.01 Morbid (severe) obesity due to excess calories; K57.90 Diverticulosis of intestine, part unspecified, without perforation or abscess without bleeding; F41.9 Anxiety disorder, unspecified; G25.81 Restless legs syndrome; F17.210 Nicotine dependence, cigarettes, uncomplicated; J45.909 Unspecified asthma, uncomplicated; E78.5 Hyperlipidemia, unspecified; Z79.01 Long term (current) use of anticoagulants; Z82.49 Family history of ischemic heart disease and other diseases of the circulatory system; Z90.49 Acquired absence of other specified parts of digestive tract; Z68.37 Body mass index [BMI] 37.0-37.9, adult; Z71.6 Tobacco abuse counseling
CPT/HCPCS: 36415; 80053; 80061; 81001; 83036; 83735; 84100; 85007; 85025; 85610; 85730; 87081; 93971; 96374; 96375; 99285; G0378; J1644; J1885; J2405; J7030

== ENCOUNTER 2019-10-24 09:50 | Emergency (ER) | payer MEDICAID ==
[~2019-10-24] VITALS: Ht 193 cm; Wt 140.9 kg
[~2019-10-24 09:50] MED LIST changes: +APIX5TAB3 PO; +ATOR20TA66 PO; +NO HOME MEDS
--- NOTE | 2019-10-24 11:28 | NUR ---
NOTIFIED DR REYES THAT PT WAITING FOR MD TO SIGN UP FOR HIM.DR REYES IS AWARE SEE THE PT SHORTLY.VITALS STABLE SBAR PT CONDITION.
[2019-10-24] MEDS ORDERED: magnesium oxide 400mg tablet PO ONE (12:35)
--- NOTE | 2019-10-24 12:56 | NUR ---
clarified with dr baker regarding dose of mg oxide as per pt might have cramps that is why we are giving mgoxide.will follow the orders.
--- NOTE | 2019-10-24 12:58 | NUR ---
dr baker said he cancelled us of leg pt is d/c home.
[2019-10-24 13:05] VITALS: BP 126/87
== END 2019-10-24 13:04 | disposition home or self-care (01) ==
LOC: ER 09:50
DX: R07.89 Other chest pain (principal); J45.909 Unspecified asthma, uncomplicated; F41.9 Anxiety disorder, unspecified; F17.200 Nicotine dependence, unspecified, uncomplicated; F12.90 Cannabis use, unspecified, uncomplicated; Z90.49 Acquired absence of other specified parts of digestive tract; Z79.899 Other long term (current) drug therapy
CPT/HCPCS: 93005; 99283

== ENCOUNTER 2019-11-05 21:23 | Emergency (ER) | payer MEDICAID ==
[~2019-11-05] VITALS: Ht 193 cm; Wt 112.0 kg
[~2019-11-05 21:23] MED LIST changes: -ACET-2119 PO; -CYCL-1 PO; -HYDR-4383 PO; -METH-360 PO; -NO HOME MEDS; -ORPH100T2 PO; -motrin; -no home
[2019-11-05] MEDS ORDERED: ACET-2119 PO (21:51)
[2019-11-05 21:56] VITALS: BP 152/91
== END 2019-11-05 21:55 | disposition home or self-care (01) ==
LOC: ER 21:24
DX: M79.605 Pain in left leg (principal); J45.909 Unspecified asthma, uncomplicated; F41.9 Anxiety disorder, unspecified; F12.90 Cannabis use, unspecified, uncomplicated; Z90.49 Acquired absence of other specified parts of digestive tract; Z79.01 Long term (current) use of anticoagulants; Z79.899 Other long term (current) drug therapy
CPT/HCPCS: 99282

== ENCOUNTER 2019-11-15 18:34 | Emergency (ER) | payer MEDICAID ==
[~2019-11-15] VITALS: Ht 193 cm; Wt 143.2 kg
[~2019-11-15 18:34] MED LIST changes: +ACET-2119 PO
[2019-11-15 18:44] VITALS: BP 159/89
== END 2019-11-15 20:48 | disposition left against medical advice (07) ==
LOC: ER 18:35
DX: M54.89 Other dorsalgia (principal); Z53.21 Procedure and treatment not carried out due to patient leaving prior to being seen by health care provider

== ENCOUNTER 2019-11-16 17:48 | Emergency (ER) | payer MEDICAID ==
[~2019-11-16] VITALS: Ht 193 cm; Wt 143.2 kg
[2019-11-16 17:54] VITALS: BP 133/86
== END 2019-11-16 18:40 | disposition home or self-care (01) ==
LOC: ER 17:49
DX: M54.6 Pain in thoracic spine (principal); J45.909 Unspecified asthma, uncomplicated; F41.9 Anxiety disorder, unspecified; F12.90 Cannabis use, unspecified, uncomplicated; Z90.49 Acquired absence of other specified parts of digestive tract; Z79.01 Long term (current) use of anticoagulants; Z79.899 Other long term (current) drug therapy
CPT/HCPCS: 99282

== ENCOUNTER 2020-03-19 11:21 | Emergency (ER) | payer MEDICAID ==
[~2020-03-19] VITALS: Ht 193 cm; Wt 135.9 kg
[~2020-03-19 11:21] MED LIST changes: -ACET-2119 PO
[2020-03-19 11:26] VITALS: BP 118/75
== END 2020-03-19 11:45 | disposition home or self-care (01) ==
LOC: ER 11:21
DX: R07.89 Other chest pain (principal); J45.909 Unspecified asthma, uncomplicated; F41.9 Anxiety disorder, unspecified; F12.90 Cannabis use, unspecified, uncomplicated; Z90.49 Acquired absence of other specified parts of digestive tract; Z79.899 Other long term (current) drug therapy
CPT/HCPCS: 99281

== ENCOUNTER 2020-08-01 20:20 | Emergency (ER) | payer MEDICAID ==
[~2020-08-01] VITALS: Ht 190.5 cm; Wt 127.3 kg
--- NOTE | 2020-08-01 20:39 | NUR ---
PT TO ROOM, ASSUMED CARE.
[2020-08-01 20:42] LABS: BASOPHILS # (AUTO) 0.1 X10'3 (0-0.2); BASOPHILS % (AUTO) 0.9 % (0-1); EOSINOPHILS # (AUTO) 0.7 X10'3 (0-0.9); EOSINOPHILS % (AUTO) 7.6 % (0-6); HEMATOCRIT 44.7 % (42.0-52.0); HEMOGLOBIN 15.4 g/dl (14.0-17.9); LYMPHOCYTES # (AUTO) 3.5 X10'3 (1.1-4.8); LYMPHOCYTES % (AUTO) 37.7 % (21-51); MEAN CORPUSCULAR HEMOGLOBIN 31.2 PG (27.0-31.0); MEAN CORPUSCULAR HGB CONC 34.5 g/dL (33.0-36.5); MEAN CORPUSCULAR VOLUME 90.3 FL (78-98); MEAN PLATELET VOLUME 8.1 FL (7.4-10.4); MONOCYTES # (AUTO) 0.8 X10'3 (0-0.9); MONOCYTES % (AUTO) 8.8 % (2-12); NEUTROPHILS # (AUTO) 4.1 X10'3 (1.8-7.7); PLATELET COUNT 250 X10'3 (140-440); RED BLOOD COUNT 4.95 X10'6 (4.70-6.10); RED CELL DISTRIBUTION WIDTH 15.2 % (11.5-14.5); WHITE BLOOD COUNT 9.2 X10'3 (4.5-11.0)
[2020-08-01] MEDS ORDERED: ESCI10TA PO (20:43)
[2020-08-01 21:15] LABS: ALANINE AMINOTRANSFERASE 33 U/L (12-78); ALBUMIN 3.8 G/DL (3.4-5.0); ALBUMIN/GLOBULIN RATIO 1.2 (1.1-1.5); ALKALINE PHOSPHATASE 96 IU/L (46-116); ANION GAP 12 (8-16); ASPARTATE AMINO TRANSFERASE 21 U/L (10-37); BILIRUBIN,TOTAL 0.5 MG/DL (0.1-1.0); BLOOD UREA NITROGEN 24 MG/DL (7-18); BUN/CREATININE RATIO 18.3 (5.4-32.0); CALCIUM 8.2 MG/DL (8.5-10.1); CHLORIDE 106 MMOL/L (99-107); CREATININE 1.31 MG/DL (0.60-1.10); GLUCOSE 114 MG/DL (70-104); POTASSIUM 3.9 MMOL/L (3.5-5.1); SODIUM 141 MMOL/L (135-145); TOTAL CARBON DIOXIDE 23.4 MMOL/L (24-32); TOTAL PROTEIN 7.1 G/DL (6.4-8.2); eGFR 59 ML/MIN
[2020-08-01 21:39] VITALS: BP 100/66
== END 2020-08-01 23:09 | disposition home or self-care (01) ==
LOC: ER 20:21
DX: R07.89 Other chest pain (principal); J45.909 Unspecified asthma, uncomplicated; F41.9 Anxiety disorder, unspecified; F12.90 Cannabis use, unspecified, uncomplicated; Z86.718 Personal history of other venous thrombosis and embolism; Z90.49 Acquired absence of other specified parts of digestive tract; Z79.899 Other long term (current) drug therapy
CPT/HCPCS: 36415; 71045; 80053; 83880; 84484; 85025; 93005; 99285

== ENCOUNTER 2020-12-14 08:07 | Emergency (ER) | payer MEDICAID ==
[~2020-12-14] VITALS: Ht 193 cm; Wt 137.3 kg
[~2020-12-14 08:07] MED LIST changes: -ATOR20TA66 PO; +ESCI10TA PO
[2020-12-14 08:10] VITALS: BP 151/97
[2020-12-14] MEDS ORDERED: IBUP-1984 PO (08:30)
== END 2020-12-14 09:36 | disposition home or self-care (01) ==
LOC: ER 08:09
DX: R07.89 Other chest pain (principal); R05.9 Cough, unspecified; J45.909 Unspecified asthma, uncomplicated; F41.9 Anxiety disorder, unspecified; F12.90 Cannabis use, unspecified, uncomplicated; Z86.718 Personal history of other venous thrombosis and embolism; Z90.49 Acquired absence of other specified parts of digestive tract; Z79.899 Other long term (current) drug therapy
CPT/HCPCS: 71046; 99283

== ENCOUNTER 2021-04-27 09:14 | Emergency (ER) | payer MEDICAID ==
[~2021-04-27] VITALS: Ht 190.5 cm; Wt 138.6 kg
[2021-04-27 09:39] LABS: BASOPHILS % (AUTO) 0.5 % (0-1); EOSINOPHILS # (AUTO) 0.6 X10'3 (0-0.9); EOSINOPHILS % (AUTO) 8.9 % (0-6); HEMATOCRIT 46.3 % (42.0-52.0); HEMOGLOBIN 15.4 g/dl (14.0-17.9); LYMPHOCYTES # (AUTO) 2.2 X10'3 (1.1-4.8); LYMPHOCYTES % (AUTO) 31.3 % (21-51); MEAN CORPUSCULAR HEMOGLOBIN 29.5 PG (27.0-31.0); MEAN CORPUSCULAR HGB CONC 33.2 g/dL (33.0-36.5); MEAN CORPUSCULAR VOLUME 88.8 FL (78-98); MEAN PLATELET VOLUME 7.6 FL (7.4-10.4); MONOCYTES # (AUTO) 0.7 X10'3 (0-0.9); MONOCYTES % (AUTO) 10.1 % (2-12); NEUTROPHILS # (AUTO) 3.5 X10'3 (1.8-7.7); NEUTROPHILS % (AUTO) 49.2 % (42-75); PLATELET COUNT 250 X10'3 (140-440); RED BLOOD COUNT 5.22 X10'6 (4.70-6.10); RED CELL DISTRIBUTION WIDTH 14.5 % (11.5-14.5); WHITE BLOOD COUNT 7.1 X10'3 (4.5-11.0)
[2021-04-27 10:01] LABS: ALANINE AMINOTRANSFERASE 54 U/L (12-78); ALBUMIN/GLOBULIN RATIO 1.1 (1.1-1.5); ALKALINE PHOSPHATASE 87 IU/L (46-116); ANION GAP 6 (8-16); ASPARTATE AMINO TRANSFERASE 25 U/L (10-37); BILIRUBIN,TOTAL 1.1 MG/DL (0.1-1.0); BLOOD UREA NITROGEN 18 MG/DL (7-18); BUN/CREATININE RATIO 18.8 (5.4-32.0); CALCIUM 8.8 MG/DL (8.5-10.1); CHLORIDE 107 MMOL/L (99-107); CREATININE 0.96 MG/DL (0.60-1.10); GLUCOSE 90 MG/DL (70-104); LIPASE 87 U/L (73-393); SODIUM 140 MMOL/L (135-145); TOTAL CARBON DIOXIDE 26.6 MMOL/L (24-32); TOTAL PROTEIN 7.6 G/DL (6.4-8.2); eGFR 85 ML/MIN
[2021-04-27] MEDS ORDERED: POLY119P2 PO (10:21)
[2021-04-27] MEDS ORDERED: ACET-1074 PO (10:22)
[2021-04-27 10:38] VITALS: BP 132/78
== END 2021-04-27 10:39 | disposition home or self-care (01) ==
LOC: ER 09:14
DX: K59.00 Constipation, unspecified (principal); R10.11 Right upper quadrant pain; J45.909 Unspecified asthma, uncomplicated; F41.9 Anxiety disorder, unspecified; F12.90 Cannabis use, unspecified, uncomplicated; Z86.718 Personal history of other venous thrombosis and embolism; Z90.49 Acquired absence of other specified parts of digestive tract; Z79.899 Other long term (current) drug therapy
CPT/HCPCS: 36415; 74018; 80053; 83690; 85025; 99284

== ENCOUNTER 2021-04-29 08:19 | Outpatient (CLI) | payer MEDICAID ==
[~2021-04-29 08:19] MED LIST changes: +ACET-1074 PO; +POLY119P2 PO
== END 2021-04-29 23:59 | disposition home or self-care (01) ==
LOC: VAS 08:19
PROVIDERS: ATTEND Internal Medicine
DX: I82.402 Acute embolism and thrombosis of unspecified deep veins of left lower extremity (principal)
CPT/HCPCS: 93971

== ENCOUNTER 2021-09-11 10:23 | Emergency (ER) | payer MEDICAID ==
[~2021-09-11] VITALS: Ht 193 cm; Wt 131.4 kg
[~2021-09-11 10:23] MED LIST changes: -ACET-1074 PO
[2021-09-11 11:00] LABS: BASOPHILS # (AUTO) 0.1 X10'3 (0-0.2); BASOPHILS % (AUTO) 0.8 % (0-1); EOSINOPHILS # (AUTO) 0.5 X10'3 (0-0.9); HEMATOCRIT 51.4 % (42.0-52.0); HEMOGLOBIN 17.4 g/dl (14.0-17.9); LYMPHOCYTES # (AUTO) 2.8 X10'3 (1.1-4.8); LYMPHOCYTES % (AUTO) 37.2 % (21-51); MEAN CORPUSCULAR HEMOGLOBIN 30.5 PG (27.0-31.0); MEAN CORPUSCULAR HGB CONC 33.9 g/dL (33.0-36.5); MONOCYTES # (AUTO) 0.8 X10'3 (0-0.9); MONOCYTES % (AUTO) 10.3 % (2-12); NEUTROPHILS # (AUTO) 3.4 X10'3 (1.8-7.7); NEUTROPHILS % (AUTO) 44.7 % (42-75); PLATELET COUNT 262 X10'3 (140-440); RED BLOOD COUNT 5.71 X10'6 (4.70-6.10); RED CELL DISTRIBUTION WIDTH 15.2 % (11.5-14.5); WHITE BLOOD COUNT 7.6 X10'3 (4.5-11.0)
[2021-09-11 11:11] LABS: ALANINE AMINOTRANSFERASE 49 U/L (12-78); ALBUMIN 3.9 G/DL (3.4-5.0); ALBUMIN/GLOBULIN RATIO 1.1 (1.1-1.5); ALKALINE PHOSPHATASE 77 IU/L (46-116); ANION GAP 7 (8-16); ASPARTATE AMINO TRANSFERASE 24 U/L (10-37); BILIRUBIN,TOTAL 0.8 MG/DL (0.1-1.0); BLOOD UREA NITROGEN 13 MG/DL (7-18); BUN/CREATININE RATIO 11.6 (5.4-32.0); CALCIUM 8.9 MG/DL (8.5-10.1); CHLORIDE 103 MMOL/L (99-107); CREATININE 1.12 MG/DL (0.60-1.10); GLUCOSE 95 MG/DL (70-104); POTASSIUM 4.6 MMOL/L (3.5-5.1); SODIUM 139 MMOL/L (135-145); TOTAL CARBON DIOXIDE 28.9 MMOL/L (24-32); TOTAL PROTEIN 7.6 G/DL (6.4-8.2); eGFR 71 ML/MIN
[2021-09-11 12:41] LABS: D-DIMER 0.31 MG/L FEU (0-0.50)
[2021-09-11 13:51] VITALS: BP 134/79
== END 2021-09-11 13:55 | disposition home or self-care (01) ==
LOC: ER 10:23
DX: R07.89 Other chest pain (principal); M79.602 Pain in left arm; J45.909 Unspecified asthma, uncomplicated; F12.90 Cannabis use, unspecified, uncomplicated; F17.210 Nicotine dependence, cigarettes, uncomplicated; Z87.19 Personal history of other diseases of the digestive system; Z86.718 Personal history of other venous thrombosis and embolism; Z79.01 Long term (current) use of anticoagulants; Z90.49 Acquired absence of other specified parts of digestive tract; Z79.899 Other long term (current) drug therapy
CPT/HCPCS: 36415; 71045; 80053; 83880; 84484; 85025; 85379; 93005; 93971; 99285

== ENCOUNTER 2022-06-06 16:44 | Emergency (ER) | payer MEDICAID ==
[~2022-06-06] VITALS: Ht 190.5 cm; Wt 112.0 kg
[2022-06-06 16:47] VITALS: BP 112/71
[2022-06-06] MEDS ORDERED: acetaminophen 325mg tablet PO ONE (17:45)
[2022-06-06] MEDS ORDERED: BACI1PAC7 TP (18:33)
[2022-06-06] MEDS ORDERED: CEPH250T PO (18:33)
[2022-06-06] MEDS ORDERED: ACET-2119 PO (18:33)
== END 2022-06-06 18:51 | disposition home or self-care (01) ==
LOC: ER 16:45
DX: S01.412A Laceration without foreign body of left cheek and temporomandibular area, initial encounter (principal); W19.XXXA Unspecified fall, initial encounter; Y93.89 Activity, other specified; Y92.89 Other specified places as the place of occurrence of the external cause; Y99.8 Other external cause status
CPT/HCPCS: 12013; 99283; J7030; 12001; 12002

== ENCOUNTER 2022-06-14 17:38 | Emergency (ER) | payer MEDICAID ==
[~2022-06-14] VITALS: Ht 193 cm; Wt 109.1 kg
[~2022-06-14 17:38] MED LIST changes: +ACET-2119 PO; +BACI1PAC7 TP; +CEPH250T PO
[2022-06-14 17:43] VITALS: BP 113/79
== END 2022-06-14 18:07 | disposition home or self-care (01) ==
LOC: ER 17:39
DX: S01.412D Laceration without foreign body of left cheek and temporomandibular area, subsequent encounter (principal); Z48.00 Encounter for change or removal of nonsurgical wound dressing; J45.909 Unspecified asthma, uncomplicated; F31.9 Bipolar disorder, unspecified; F12.10 Cannabis abuse, uncomplicated; Z90.49 Acquired absence of other specified parts of digestive tract; Z79.899 Other long term (current) drug therapy; X58.XXXD Exposure to other specified factors, subsequent encounter
CPT/HCPCS: 99282

== ENCOUNTER 2022-12-31 08:43 | Emergency (ER) | payer MEDICAID ==
[~2022-12-31] VITALS: Ht 193 cm; Wt 111.4 kg
[~2022-12-31 08:43] MED LIST changes: -ACET-2119 PO; -BACI1PAC7 TP; -CEPH250T PO
[2022-12-31 08:50] VITALS: BP 116/83; PULSE 66; RESP 20; TEMP 97.9; O2SAT 100
[2022-12-31] MEDS ORDERED: TETanus/Pertussis (Acell)/Diphther VAC/PF (Tdap-Adult) 0.5ml syringe IMVAC ONE (09:15)
[2022-12-31] MEDS ORDERED: AMOX-580 PO (09:17)
== END 2022-12-31 09:28 | disposition home or self-care (01) ==
LOC: ER 08:44
DX: S01.531A Puncture wound without foreign body of lip, initial encounter (principal); W54.0XXA Bitten by dog, initial encounter; Y93.89 Activity, other specified; Y92.89 Other specified places as the place of occurrence of the external cause; Y99.8 Other external cause status
CPT/HCPCS: 90471; 90715; 99283

== ENCOUNTER 2023-07-02 11:19 | Emergency (ER) | payer MEDICAID ==
[~2023-07-02] VITALS: Ht 193 cm; Wt 107.8 kg
[2023-07-02 13:43] VITALS: PULSE 71
[2023-07-02] MEDS ORDERED: APIX5TAB3 PO (13:49)
[2023-07-02 13:52] VITALS: BP 118/84; RESP 16; TEMP 97.9; O2SAT 99
== END 2023-07-02 14:00 | disposition home or self-care (01) ==
LOC: ER 11:19
DX: I82.412 Acute embolism and thrombosis of left femoral vein (principal); J45.909 Unspecified asthma, uncomplicated; Z86.718 Personal history of other venous thrombosis and embolism; F41.9 Anxiety disorder, unspecified; Z90.49 Acquired absence of other specified parts of digestive tract; F12.90 Cannabis use, unspecified, uncomplicated
CPT/HCPCS: 93971; 99284

== ENCOUNTER 2023-07-04 11:40 | Emergency (ER) | payer MEDICAID ==
[~2023-07-04] VITALS: Ht 193 cm; Wt 102.7 kg
[2023-07-04 13:33] VITALS: BP 99/79; PULSE 73; RESP 16; TEMP 97.8; O2SAT 100
== END 2023-07-04 15:13 | disposition home or self-care (01) ==
LOC: ER 11:40
DX: M54.50 Low back pain, unspecified (principal); J45.909 Unspecified asthma, uncomplicated; F41.9 Anxiety disorder, unspecified; F12.90 Cannabis use, unspecified, uncomplicated; Z90.49 Acquired absence of other specified parts of digestive tract; Z86.718 Personal history of other venous thrombosis and embolism; Z79.899 Other long term (current) drug therapy; Z79.2 Long term (current) use of antibiotics
CPT/HCPCS: 93005; 99283

== ENCOUNTER 2024-07-20 12:49 | Emergency (ER) | payer MEDICAID ==
[~2024-07-20] VITALS: Ht 193 cm; Wt 98.2 kg
[2024-07-20 12:55] VITALS: BP 97/61; TEMP 98.2
--- NOTE | 2024-07-20 13:34 | Physician Documentation ---
History of Present Illness ~ Chief Complaint: Cold, cough & congestion Stated Complaint: BRONCHITIS Time Seen by MD: 14:03 OK to notify your PCP?: Yes Primary Medical Doctor: [facility] Source: patient Mode of Arrival: POV Exam Limitations: no limitations HPI 49-year-old male presents with increasing productive cough, congestion, generalized weakness and sore throat. He was seen at urgent care and given a prescription for doxycycline and Tessalon Perles for the past week but he is getting worse. He does have a history of asthma and was prescribed an albuterol inhaler but he did not like the way that it makes him feel. He denies any chest pain or shortness of breath at this time. Medication Reconciliation Allergies: Coded Allergies: No Known Allergies (Unverified , 07/04/23) Scheduled Apixaban (Eliquis), 10 MG PO BID Apixaban (Eliquis), 1 TAB PO Q12H Escitalopram Oxalate (Lexapro), 1 TAB PO DAILY, (Reported) Polyethylene Glycol 3350 (Miralax), 17 GM PO DAILY Past Medical History Past Medical History: Asthma, Diverticulitis, Diverticulosis, Deep Vein Thrombosis, Anxiety Past Surgical History: cholecystectomy Alcohol Use: None Drug Use: marijuana Lives with: Spouse Lives In: Home Review of Systems All Other Systems at this time: Reviewed and Negative Constitutional: Denies: chills, fever, weakness Eyes: Denies: pain, blurred vision ENT: Denies: ear pain, nose pain, throat pain, mouth pain Respiratory: Denies: cough, shortness of breath Cardiovascular: Denies: chest pain, palpitations Gastrointestinal: Denies: abdominal pain, nausea, vomiting Genitourinary: Denies: burning, dysuria Male Genitalia: Denies: penile discharge, testicular pain Neurological: Denies: headache, dizziness Musculoskeletal: Denies: pain, swelling Integumentary: Denies: rash, lesions Allergic/Immunologic: Denies: hives, itching Hematologic/Lymphatic: Denies: no symptoms reported Psychiatric: Denies: depression, anxiety Physical Exam Vital Signs: RN Vital Signs have been reviewed: Yes, Temperature: 98.2, Heart Rate: 81, Respiratory Rate: 18, BP: 97/61, Pulse Oximetry: 98, Weight: 98.180 Oxygen Flow Rate: 0 Pulse Oximetry Reflects: adequate oxygenation Physical Exam General: Alert, no apparent distress. HEENT: PERRL, EOMI, moist mucous membranes. Neck: Full range of motion. Respiratory: Bilateral expiratory coarse breath sounds heard in the bases, no respiratory distress. I do appreciate expiratory wheezes throughout all lung zamora. Chest: No accessory muscle use. Cardiovascular: Regular rate and rhythm, no murmurs. Gastrointestinal: Soft, nontender, nondistended. Bowels sounds present. Extremities: Normal range of motion, no deformity. Neurologic: Oriented x4. Psychiatric: Normal mood and affect. Skin: Normal color, warm and dry. No edema, no ecchymosis. Progress Results/Orders Results/Orders Orders - DAKOTA DE LOS SANTOS Svn Treatment (07/20/24 16:06) Completed Orders - DAKOTA DE LOS SANTOS Albuterol 2.5mg/3ml Nebule (Proventil 2. (07/20/24 16:10) Ipratropium/Albuterol Nebule (Ipratrop/A (07/20/24 16:10) Vital Signs 07/20/24 07/20/24 12:55 16:07 Temp 98.2 Pulse 81 Resp 18 16 B/P (MAP) 97/61 Pulse Ox 98 O2 Flow Rate 0 Medical Decision Making Findings 49-year-old male presents with increasing productive cough, congestion, generalized weakness and sore throat. He was seen at urgent care and given a prescription for doxycycline and Tessalon Perles for the past week but he is getting worse. He does have a history of asthma and was prescribed an albuterol inhaler but he did not like the way that it makes him feel. He denies any chest pain or shortness of breath at this time. Patient's chest x-ray was unremarkable. Patient was treated with a breathing treatment and did admit to feeling a little better. Prescription of albuterol inhaler sent to patient pharmacy. Patient will discontinue use of any vaping or nicotine products. Patient will discontinue the use of his doxycycline. Patient will follow up with primary care in 2-5 days if no better as needed sooner. Return to ED with any worsening, concerning or changing symptoms. Departure Disposition: HOME / SELF CARE / HOMELESS Impression: Primary Impression: Cough Qualified Codes: R05.1 - Acute cough Condition: Improved Discharge Instructions: Upper Respiratory Infection, Adult Additional Instructions: Patient's chest x-ray was unremarkable. Patient was treated with a breathing treatment and did admit to feeling a little better. Prescription of albuterol inhaler sent to patient pharmacy. Patient will discontinue use of any vaping or nicotine products. Patient will discontinue the use of his doxycycline. Patient will follow up with primary care in 2-5 days if no better as needed sooner. Return to ED with any worsening, concerning or changing symptoms. Referrals: NO PRIMARY CARE PROVIDER (PCP) Prescriptions albuterol inhaler (Pro-Air Inhaler) 8.5 Gm Inhaler 1-2 PUFFS PO Q4H PRN for shortness of breath, #1 INH Prov: DAKOTA DE LOS SANTOS PAC 07/20/24 Additional Comment Medical Screen Exam This patient recieved a medical screening examination. After reviewing the individual's medical complaints with presenting symptoms and performing an appropriate physical examination, it was determined that no immediate life-threatening emergency medical condition is present. This individual is also not a women having contractions. Signature Scribe Signature: No scribe Attestation: No scribe SANDRA CROCKERP Jul 20, 2024 13:34 DAKOTA DE LOS SANTOS PAC Jul 20, 2024 16:34
--- NOTE | 2024-07-20 13:45 | RADIOLOGY REPORT ---
DI CHEST,TWO VIEWS, HISTORY: Productive cough COMPARISON: CHEST,TWO VIEWS on DOS: 12/14/20 CHEST,TWO VIEWS on DOS: 12/14/20 TECHNICAL DATA: 2 view of the chest was obtained. FINDINGS: Lines and tubes: None Cardiomediastinal silhouette: normal Pulmonary vasculature: normal Lung expansion: normal Lung airspace: normal Lung interstitium: normal Pleura: normal Pneumothorax: no Bones: Unremarkable Other: no IMPRESSION: No acute intrathoracic abnormality.
[2024-07-20] MEDS ORDERED: ALBU8HFA PO (16:40)
[2024-07-20] MEDS: ipratropium/albuterol 3ml nebule NEB ONE (16:56)
[2024-07-20] MEDS: albuterol 2.5 MG/3 ML nebule NEB ONE (16:56)
[2024-07-20 16:57] VITALS: PULSE 58; RESP 18; O2SAT 98
[2024-07-20 17:07] VITALS: PULSE 64; RESP 18; O2SAT 100
[2024-07-20 17:25] VITALS: PULSE 66; RESP 19; O2SAT 98
== END 2024-07-20 17:26 | disposition home or self-care (01) ==
LOC: ER 12:49
DX: R05.9 Cough, unspecified (principal); R09.81 Nasal congestion; R53.1 Weakness; J45.909 Unspecified asthma, uncomplicated; F41.9 Anxiety disorder, unspecified; F12.90 Cannabis use, unspecified, uncomplicated; Z90.49 Acquired absence of other specified parts of digestive tract
CPT/HCPCS: 71046; 94640; 94760; 99283